=== PATIENT | female | born 1965 | race Caucasian/White ===

== ENCOUNTER 2022-09-10 10:15 | Outpatient (REF) | payer OTHER, SELFPAY ==
--- NOTE | ~2022-09-10 | FL_ITS ---
PROCEDURE: XR BARIUM SWALLOW CLINICAL INFORMATION: Dysphagia. COMPARISON: None TECHNIQUE: Modified barium swallow with speech pathologist. FINDINGS: Patient swallowed multiple consistencies from thin liquid to barium-coated cookie. There was only flash penetration on one swallow of thin liquid and not anytime else during the procedure. No definite cricopharyngeal hypertrophy or Zenker's diverticulum was appreciated. FLUOROSCOPY TIME: 2.4 minutes DOSE AREA PRODUCT: 2.709 Gy-cm2 (lo-centimeter squared) FL/FL barium swallow modified IMPRESSION: No significant abnormality identified as described. Please refer to speech pathologist report for details.
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
== END 2022-09-10 10:16 | disposition home or self-care (01) ==
LOC: HO.XRAY 10:15
PROVIDERS: Visit Provider Internal Medicine Gastroenterology
DX: R13.19 Other dysphagia (principal)
CPT/HCPCS: 74230; 92611

== ENCOUNTER 2024-05-01 11:41 | Day surgery (SDC) | payer OTHER, MEDICARE, SELFPAY ==
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
[2024-05-01 13:01] VITALS: BMI 21.6
[2024-05-01 13:02] VITALS: BP 158/67; PULSE 63; RESP 16; TEMP 37; O2SAT 97
--- NOTE | 2024-05-01 13:35 | MHC.SHP ---
Pre-Procedural Eval Section A - 24 Hr Update-Section A only Date of Service: 05/01/24 The patient is an INPATIENT: No Changes since office visit: No Cold of Flu in the past 2 weeks, No New Medical Problems, No Changes in Medication and No Patient answered all questions The patient has been examined within 24 hours of the surgical procedure. The History & Physical has been completed within 30 days and I have reviewed it.: Yes Section B - Complete if H&P > 30 days Chief Complaint: Dysphagia, unspecified Allergies: Allergies Allergy/AdvReac Type Severity Reaction Status Date / Time No Known Allergies Allergy Verified 05/01/24 13:00 Plan I have reviewed the history and physical and performed a pertinent physical examination on my patient. No changes have occurred unless specified. Time Spent With Patient Time: Total time managing care of this patient today ____ minutes.
[2024-05-01 14:15] VITALS: BP 136/73; PULSE 67; RESP 18; TEMP 36.2; O2SAT 99
[2024-05-01 14:30] VITALS: BP 151/85; PULSE 72; RESP 18; O2SAT 98
[2024-05-01 14:45] VITALS: BP 148/78; PULSE 58; RESP 18; TEMP 36.2; O2SAT 99
[2024-05-01] MEDS: ondansetron HCL 4 MG/2 ML VIAL IVPUSH (14:45)
--- NOTE | 2024-05-01 14:49 | OP_ITS ---
DATE OF SERVICE: 05/01/2024 SURGEON: Marco Antonio Greer MD INDICATIONS: Dysphagia and abdominal pain. PREOPERATIVE DIAGNOSIS: POSTOPERATIVE DIAGNOSIS: PROCEDURE PERFORMED: Upper endoscopy with biopsy. ESTIMATED BLOOD LOSS: COMPLICATIONS: ANESTHESIA: Monitored anesthesia care. ASSISTANTS: SPECIMENS: DESCRIPTION OF PROCEDURE: A history and physical was performed. The risks and benefits of the procedure were explained to the patient and informed consent was obtained. The patient was placed in the left lateral decubitus position. The Olympus video gastroscope was introduced into the esophagus, stomach, and duodenum. Examination was performed and the scope was removed. She tolerated the procedure well and was returned to recovery area in stable condition. FINDINGS: Esophagus: The esophagus showed a whitish coating in the distal esophagus that did not appear consistent with Belinda. This appeared to wash off with irrigation. Biopsies were obtained from the EG junction and from the body of the esophagus. No stricture was seen. Stomach: The stomach showed no evidence of masses or ulcers. There was a small polyp right at the pylorus, which appeared inflammatory. Biopsies were obtained from the antrum and from the polyp. Duodenum: The bulb and 2nd portion were normal. Biopsies were obtained from the 2nd portion. IMPRESSION: 1. Dysphagia. 2. Abdominal pain. RECOMMENDATION: Follow up the biopsy results. MD JESSICA Dang/ADILENE / [id number]
== END 2024-05-01 15:29 | disposition home or self-care (01) ==
PROVIDERS: PCP Internal Medicine; Visit Provider Internal Medicine Gastroenterology
PROC: 0DJ08ZZ Inspection of Upper Intestinal Tract, Via Natural or Artificial Opening Endoscopic (ICD-10-PCS; CPT 43235; principal; 2024-05-01 14:00)
DX: R13.10 Dysphagia, unspecified (principal); K29.50 Unspecified chronic gastritis without bleeding; K31.7 Polyp of stomach and duodenum
CPT/HCPCS: 43239; 88305; 88313; 88342; J2405

== ENCOUNTER 2024-08-21 06:26 | Day surgery (SDC) | payer OTHER, MEDICARE, SELFPAY ==
[2024-08-16 13:56] VITALS: BMI 16.1
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
[2024-08-21 06:52] VITALS: BMI 22.1
[2024-08-21 07:17] VITALS: BP 134/69; PULSE 67; RESP 16; TEMP 36.8; O2SAT 97
[2024-08-21] MEDS: Lactated Ringers 1,000 ML 100 ML IVCONT (07:25)
--- NOTE | 2024-08-21 07:39 | P.HPSUR_ITS ---
Pre-Procedural Eval Section A - 24 Hr Update-Section A only Date of Service: 08/21/24 Section B - Complete if H&P > 30 days Chief Complaint: Gastric intestinal metaplasia, unspecified Details of Present Illness: Gastric intestinal metaplasia, EGD for evaluation Relevant Family History (Specify if Yes): No Relevant Social History: None Allergies: Allergies Allergy/AdvReac Type Severity Reaction Status Date / Time No Known Allergies Allergy Verified 05/01/24 13:00 Review of Systems Sugical H&P ROS: Negative: Constitution, Cardiovascular, Respiratory, Neurological, Psychiatric, Hem-Onc, Allergic/Immunologic, Gastrointestinal, Genitourinary, Musculoskeletal, Integumentary, Endocrine and Eyes/Ears/Nose/ Throat Exam Surgical H&P Exam: Normal: HEENT, Normal: Heart, Normal: Lungs, Normal: Extremities, Normal: Abdomen, Normal: Skin and Normal: Neurological Plan Diagnosis/Plan: Unchanged I have reviewed the history and physical and performed a pertinent physical examination on my patient. No changes have occurred unless specified. Time Spent With Patient Time: Total time managing care of this patient today ____ minutes.
[2024-08-21 08:07] VITALS: BP 109/55; PULSE 71; RESP 12; TEMP 36.4; O2SAT 97
[2024-08-21 08:22] VITALS: BP 135/73; PULSE 73; RESP 16; TEMP 36.4; O2SAT 97
--- NOTE | 2024-08-21 08:24 | OP_ITS ---
DATE OF SERVICE: 08/21/2024 SURGEON: Marco Antonio Greer MD INDICATIONS: Gastric intestinal metaplasia. PREOPERATIVE DIAGNOSIS: POSTOPERATIVE DIAGNOSIS: PROCEDURE PERFORMED: Upper endoscopy with biopsy. ESTIMATED BLOOD LOSS: COMPLICATIONS: ANESTHESIA: Monitored anesthesia care. ASSISTANTS: SPECIMENS: DESCRIPTION OF PROCEDURE: A history and physical was performed. The risks and benefits of the procedure were explained to the patient and informed consent was obtained. The patient was placed in the left lateral decubitus position. The Olympus video gastroscope was introduced into the esophagus, stomach, and duodenum. Examination was performed. The scope was removed. She tolerated the procedure well and was turned to recovery area in stable condition. FINDINGS: Esophagus: The esophagus was normal. Stomach: The stomach showed no evidence of masses, ulcers, or polyps. Biopsies were obtained because of the patient's history of gastric intestinal metaplasia. Duodenum: The bulb and 2nd portion were normal. IMPRESSION: Gastric intestinal metaplasia. RECOMMENDATION: Follow up the biopsy results. MD JESSICA Dang/MODL / [id number]
== END 2024-08-21 08:48 | disposition home or self-care (01) ==
PROVIDERS: PCP Internal Medicine; Visit Provider Internal Medicine Gastroenterology
PROC: 0DJ08ZZ Inspection of Upper Intestinal Tract, Via Natural or Artificial Opening Endoscopic (ICD-10-PCS; CPT 43235; principal; 2024-08-21 07:30)
DX: K31.A0 Gastric intestinal metaplasia, unspecified (principal); K29.60 Other gastritis without bleeding; K21.9 Gastro-esophageal reflux disease without esophagitis; K92.89 Other specified diseases of the digestive system; G47.00 Insomnia, unspecified; Z87.820 Personal history of traumatic brain injury; G43.909 Migraine, unspecified, not intractable, without status migrainosus; M81.0 Age-related osteoporosis without current pathological fracture; E03.9 Hypothyroidism, unspecified; Z79.899 Other long term (current) drug therapy
CPT/HCPCS: 43239; 88305; 88313; 88342; J2003; J2704

== ENCOUNTER 2025-09-03 07:53 | Outpatient (REF) | payer OTHER, MEDICARE, SELFPAY ==
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
--- OUTSIDE RECORDS SUMMARY | 2024-08-21 03:30 | XMS_ITS ---
Author Organization [facility] Address [address] [place] [address] [place] [phone] Care Team Providers Care Production Material Handler Name Role Phone Shu WEINBERG, Kendall Primary Care Provider Marco Antonio Jensen Jr REASON FOR VISIT upper endoscopy Encounters Encounter Location Date Provider Diagnosis [facility] [place] [address] [place] [id number] 08/21/2024 Marco Antonio Greer Jr Gastric intestinal metaplasia K31.A0 Assessments Encounter Date Diagnosis (ICD Code) Assessment Notes Treatment Notes Treatment Clinical Notes Section Notes 08/21/2024 Gastric intestinal metaplasia (ICD-10 - K31.A0) Plan Of Treatment Next Appt Details Provider Name:Marco Antonio koo Jr, 04/23/2026 10:20:00 AM, [address] [place] [address], Suite [facility], [place], [address], Progress Notes * BASSAM WILLSHUDSONDOB:1965 (59 yo F)Acc No.[id number]:08/21/2024 EGD/MAC Patient: OVI RAMIREZ Provider: Westley Greer MD :1965 A ge:58 Y S ex:Female Date:08/21/2024 Address:[address], [id number] Pcp:Kendall Ireland MD Subjective: * Chief Complaints: * 1 . Upper endoscopy. * Medical History: Objective: * Vitals: Assessment: * Assessment: 1. G astric intestinal metaplasia - K31.A0 (Primary) Plan: * Treatment: * Procedure Codes: 4 3239 UPPER GI ENDOSCOPY, BIOPSY * * The named appointment provid er may or may not be the originator of this progress note, and it is not deemed complete until electronically signed by the appointment provider. Sign off status: Pending * Provider: Westley Greer MD Date: Generated for Daisha mendoza/Keny/Efrenitting on: 08:03 AM EDT
--- OUTSIDE RECORDS SUMMARY | 2025-07-26 05:00 | XMS_ITS ---
Author Organization [facility] Address [address] [place] [address] [place] [phone] Care Team Providers Care Furnace Keeper Name Role Phone Kendall Ireland MD Primary Care Provider Marco Antonio Jensen Jr REASON FOR VISIT screening Encounters Encounter Location Date Provider Diagnosis [facility] [place] [address] [place] [id number] 07/26/2025 Marco Antonio Greer Jr Plan Of Treatment Next Appt Details Provider Name:Marco Antonio koo Jr, 04/23/2026 10:20:00 AM, [address] [place] [address], Suite [facility], [place], [phone], Progress Notes * OVI WILLSDOB:1965 (59 yo F)Acc No.[id number]:07/26/2025 Progress Notes Patient: OVI RAMIREZ Provider: Westley Greer MD :1965 A ge:59 Y S ex:Female Date:07/26/2025 Address:[address], [id number] Pcp:Kendall Ireland MD Subjective: * Chief Complaints: * 1 . Screening. * Medical History: Objective: * Vitals: Assessment: Plan: * Treatment: * * The named appointment provid er may or may not be the originator of this progress note, and it is not deemed complete until electronically signed by the appointment provider. Sign off status: Pending * Provider: Westley Greer MD Date: 0 07/26/2025 Generated for Daisha mendoza/Keny/Shawna on: 1 08:03 AM EDT
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
--- OUTSIDE RECORDS SUMMARY | 2025-09-03 08:04 | XMS_ITS | Clinical Summary ---
Author Organization [facility] Address [address] [place] [address] Care Team Providers Care Medical Records Custodian Name Role Phone Dory Aldana Primary Care Provider [phone] Allergies No known active allergies Active Problems Problem Noted Date Diagnosed Date Eye pain Left 04/24/2013 Social History Tobacco Use Types Packs/Day Years Used Date Smoking Tobacco: Never Smokeless Tobacco: Never Tobacco Cessation:Counseling Given: Not Answered Comments:: Alcohol Use Standard Drinks/Week Comments Not Currently 0 (1 standard drink = 0.6 oz pur e alcohol) Comments Unknown Sex and Gender Information Value Date Recorded Sex Assigned at Female 07/27/2024 4:00 PM EDT Legal Sex Female 7:52 AM EDT Gender Identity Female 07/27/2024 4:00 PM EDT Sexual Orientation Not on file Last Filed Vital Signs Vital Sign Reading Time Taken Comments Blood Pressure 116/64 07/31/2024 8:38 AM EDT Pulse - - Temperature 36.4 C (97.5 F) 07/31/2024 8:38 AM EDT Respiratory Rate - - Oxygen Saturation - - Inhaled Oxygen Concentration - - Weight 47.9 kg (105 lb 9.6 oz) 07/31/2024 8:38 A M EDT Height 144.8 cm (4' 9 ) 07/31/2024 8:38 AM EDT Body Mass Index 22.85 07/31/2024 8:38 AM EDT Plan of Treatment Health Maintenance Due Date Last Done Comments Cologuard 1963 Colon Cancer Screening 1963 Colonoscopy 1963 FOBT / Fit Test 1963 HIV Screening 1963 Hepatitis C Screening 1963 Sigmoidoscopy 1963 DTaP,Tdap,and Td Vaccines (1 - Tdap) 1985 Mammogram 2003 Pneumococcal Vaccine: 50+ Ye ars (1 of 1 - PCV) 2013 Zoster Vaccines (1 of 2) 2013 Alcohol/Substance Use Screening 11/07/2024 Depression Screening and Follow-Up 11/07/2024 Social Drivers of Health [place] ual Screening 11/07/2024 COVID-19 Vaccine (1 - 2024-2 6 season) 2025 Influenza Vaccine (#1) 2025 RSV Vaccine (60+ years old a nd patients) (1 - 1-dose 75+ series) 2038 Hepatitis B Vaccines Aged Out No long er eligible based on patient's age to complete this topic Insurance Care Teams Medical Records Custodian Relationship Specialty Start Date End Date Dory Aldana [address] [place] [phone] PCP - General 05/26/17
[2025-09-03 09:13] LABS: Leukocytes Stool Qualitative NEGATIVE (NEGATIVE)
[2025-09-03 10:34] LABS: CDiff Gene PCR POSITIVE (Negative)
[2025-09-03 11:18] LABS: CDIFF Internal ctrl Dots and bkg OK (V); CDiff Toxin Negative (Negative)
[2025-09-03 14:03] LABS: E. coli EAEC Not Detected (Not Detect.); E. coli EPEC Not Detected (Not Detect.); E. coli ETEC Not Detected (Not Detect.); E. coli STEC Not Detected (Not Detect.); Shigella sp./EIEC Not Detected (Not Detect.)
== END 2025-09-03 07:54 | disposition home or self-care (01) ==
LOC: HO.LNP 07:53
PROVIDERS: Visit Provider Internal Medicine Gastroenterology
DX: R19.7 Diarrhea, unspecified (principal)
CPT/HCPCS: 87177; 87209; 87324; 87493; 87507; 89055

== ENCOUNTER 2025-09-26 08:05 | Outpatient (REF) | payer OTHER, MEDICARE, SELFPAY ==
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
--- OUTSIDE RECORDS SUMMARY | 2024-08-21 02:30 | XMS_ITS ---
Author Organization [facility] Address [address] [place] [address] [place] [id number] Care Team Providers Care Chemical Operator Name Role Phone Shu WEINBERG, Kendall Primary Care Provider Marco Antonio Jensen Jr REASON FOR VISIT upper endoscopy Encounters Encounter Location Date Provider Diagnosis [facility] [place] [address] [place] [id number] 08/21/2024 Marco Antonio Greer Jr Gastric intestinal metaplasia K31.A0 Assessments Encounter Date Diagnosis (ICD Code) Assessment Notes Treatment Notes Treatment Clinical Notes Section Notes 08/21/2024 Gastric intestinal metaplasia (ICD-10 - K31.A0) Plan Of Treatment Next Appt Details Provider Name:Marco Antonio koo Jr, 04/23/2026 10:20:00 AM, [address] [place] [address], Suite [facility], [place], [address], Progress Notes * OVI WILLSDOB:1965 (59 yo F)Acc No.[id number]:08/21/2024 EGD/MAC Patient: OVI RAMIREZ Provider: Westley Greer MD :1965 A ge:58 Y S ex:Female Date:08/21/2024 Address:[address], [id number] Pcp:Kendall Ireland MD Subjective: * Chief Complaints: * U pper endoscopy Assessment: * Assessment: 1. G astric intestinal metaplasia - K31.A0 (Primary) Plan: * Procedure Codes: 4 3239 UPPER GI ENDOSCOPY, BIOPSY Billing Information: * Procedure Codes: 83337 UPPER GI ENDOSCOPY, BIOPSY. * The named appointment provid er may or may not be the originator of this progress note, and it is not deemed complete until electronically signed by the appointment provider. Sign off status: Pending * Provider: Westley Greer MD Date: Generated for Daisha mendoza/Keny/Franksmitting on: 11/27/2024 08:06 AM EST
--- OUTSIDE RECORDS SUMMARY | 2025-09-21 23:59 | XMS_ITS | Continuity of Care Document ---
Author Organization [facility] Address [facility] [address]- Support Name Relationship Address Phone ELMA KOFI Personal Relationship Unknown Desirae vailable LAPERLE, KOFI Personal Relationship Unknown Desirae vailable LAPERLE, KOFI Personal Relationship Unknown Desirae vailable DAWOOD SUTTON sibling Unknown Unavailable MARCELINO TUCKER Other Unknown Unavailabl e LAPERLUANA, KOFI Personal Relationship Unknown Desirae vailable LAPERLE, KOFI Personal Relationship Unknown Desirae vailable LAPERLE, KOFI Personal Relationship Unknown Dseirae vailable LAPERLE, KOFI Personal Relationship Unknown Desirae vailable LAPERLE, KOFI Personal Relationship Unknown Desirae vailable LAPERLE, KOFI Personal Relationship Unknown Desirae vailable LAPERLE, KOFI Personal Relationship Unknown Desirae vailable LAPERLE, KOFI Personal Relationship Unknown Desirae vailable LAPERLE, KOFI Personal Relationship Unknown Desirae vailable LAPERLE, KOFI Personal Relationship Unknown Desirae vailable LAPERLE, KOFI Personal Relationship Unknown Desirae vailable LAPERLE, KOFI Personal Relationship Unknown Desirae vailable LAPERLE, KOFI spouse Unknown Unavailable LAPERLEKOFI Personal Relationship Unknown Desirae vailable LAPERLE, KOFI Personal Relationship Unknown Desirae vailable LAPERLE, KOFI Personal Relationship Unknown Desirae vailable LAPERLE, KOFI Personal Relationship Unknown Desirae vailable LAPERLE, KOFI Personal Relationship Unknown Desirae vailable COLLINS, GRETA child Unknown Unavailable LAPERKOFI CRAFT Personal Relationship Unknown Desirae vailable LAPERLE, KOFI Personal Relationship Unknown Desirae vailable LAPERLE, KOFI Personal Relationship Unknown Desirae vailable LAPERKOFI CRAFT J Personal Relationship Unknown U navailable LAPERLUANA, KOFI Personal Relationship Unknown Desirae vailable OVI WILLS Personal Relationship Unknown Un available LAPERLEKOFI Personal Relationship Unknown Desirae vailable KOFI WILLS Personal Relationship Unknown Desirae vailable KOFI WILLS Personal Relationship Unknown Desirae vailable KOFI WILLS Personal Relationship Unknown Desirae vailable Care Team Providers Care Supervisor [employer] Name Role Phone Kendall Ireland MD [facility] Care [id number] Date(s): 05/24/25 - 09/21/25 [facility] [address] [facility] [address] Attending Physician: Benjie Stuart MD Admitting Physician: Benjie Stuart MD Referring Physician: Kendall Ireland MD Encounter Type: Pre-OutPatient One Time Allergies, Adverse Reactions, Alerts No Known Allergies Immunizations Given and Recorded Vaccine Date Status Refusal Reason influenza virus vaccine, inactivated 08/06/25 Give n influenza virus vaccine, inactivated 08/03/23 Duncan rded influenza virus vaccine, inactivated 08/26/22 Duncan rded influenza virus vaccine, inactivated 09/24/21 Duncan rded influenza virus vaccine, inactivated 08/04/20 Duncan rded influenza virus vaccine, inactivated 08/03/19 Duncan rded influenza virus vaccine, inactivated 08/09/18 Duncan rded influenza virus vaccine, inactivated 08/11/17 Duncan rded influenza virus vaccine, inactivated 08/12/16 Duncan rded tetanus/diphtheria/pertussis, acel(Tdap) 1 03/04/25 Given RSV vaccine preF3, recombinant 08/23/24 Recorded SARS-CoV-2(COVID-19)mRNA-LNP vac([id number]) 08/23/24 Recorded [id number] 12y+ bivalent booster vax 09/01/22 Recorded SARS-CoV-2 (COVID-19) mRNA BNT-162b2 vac 10/19/21 Recorded SARS-CoV-2 (COVID-19) mRNA BNT-162b2 vac 01/10/21 Recorded SARS-CoV-2 (COVID-19) mRNA BNT-162b2 vac 12/20/20 Recorded zoster vaccine, inactivated 07/02/20 Recorded zoster vaccine, inactivated 05/03/20 Recorded pneumococcal 23-valent vaccine 10/13/17 Recorded 1Result Comment: [facility]: [id number] Medications acetaminophen 650 mg oral tablet, extended release 2 tablet, By Mouth, Every 8 hours, # 540 tablet, 0 Refills, Maintenance, 08/19/25 8:35:00 AM EDT, [facility] #[id number], 147, cm, 08/06/25 16:02:00 EDT, Height, 50.1, kg, 07/03/25 14:18:00 EDT,Dry Weight Start Date: 08/19/25 Status: Ordered Medication Dispense Status: Completed Quantity: 540.0 Unit: tablet Total Allowed Fills: 1 Fills Dispensed: 0 Aerochamber w/Mask (Large) See Instructions, # 1 each, Maintenance, one spray to the chamber followed by 5 regular breaths. Repeat as directed, 06/18/25 1:05:00 PM EDT, Supply, 147, cm, 05/21/25 8:19:00 EDT, Height, 45, kg, 09/08/24 13:16:00 EDT, Dry Weight Start Date: 06/18/25 Status: Ordered Medication Dispense Status: Completed Quantity: 1.0 Unit: each Total Allowed Fills: 1 Fills Dispensed: 0 Aimovig SureClick Autoinjector-aooe 140 mg/mL subcutaneous solution See Instructions, ADMINISTER 1 ML UNDER THE SKIN EVERY 28 DAYS, # 1 mL, 5 Refills, Maintenance, 09/02/25 8:50:00 PM EDT, [facility] #[id number], 147, cm, 08/27/25 9:31:00 EDT, Height, 50.1, kg, 07/03/25 14:18:00 EDT, Dry Weight Start Date: 09/02/25 Status: Ordered Medication Dispense Status: Completed Quantity: 1.0 Unit: mL Total Allowed Fills: 6 Fills Dispensed: 0 Albuterol (Eqv-Proventil HFA) 90 mcg/inh inhalation aerosol 2 inhalation = 180 mcg, Inhalation, Every 4 hours, PRN as needed for shortness of breath or wheezing, [id number], # 3 each, 3 Refills, Maintenance, 05/13/25 1:09:00 PM EDT, Aerosol, [facility] #[id number], Partial fill upon patient request if the prescription is for a schedule II opioid drug., 147, cm, 04/23/25 15:36:00 EDT, Height, 45, kg, 09/08/24 13:16:00 EDT, Dry Weight Start Date: 05/13/25 Status: Ordered Medication Dispense Status: Completed Quantity: 3.0 Unit: each Total Allowed Fills: 4 Fills Dispensed: 0 Albuterol (Eqv-Proventil HFA) 90 mcg/inh inhalation aerosol 2 inhalation = 180 mcg, Inhalation, Every 4 hours, PRN as needed for shortness of breath or wheezing, # 18 Gm, 11 Refills, Maintenance, 05/20/25 10:43:00 AM EDT, Aerosol, [facility] #[id number], Partial fill upon patient request if the prescription is for a schedule II opioid drug., 147, cm, 04/23/25 15:36:00 EDT, Height, 45, kg, 09/08/24 13:16:00 EDT, Dry Weight Start Date: 05/20/25 Stop Date: 05/15/26 Status: Ordered Medication Dispense Status: Completed Quantity: 18.0 Unit: g Total Allowed Fills: 12 Fills Dispensed: 0 albuterol 0.083% inhalation solution 3 mL = 2.5 mg, Inhalation, Every 6 hours, PRN for wheezing/shortness of breath, # 360 mL, 11 Refills, Maintenance, 06/26/25 12:16:00 PM EDT, Solution, [facility] #[id number], Partial fill upon patient request if the prescription is for a schedule II opioid drug., 147, cm, 06/26/25 11:48:00 EDT,Height, 45, kg, 09/08/24 13:16:00 EDT, Dry Weight Start Date: 06/26/25 Status: Ordered Medication Dispense Status: Completed Quantity: 360.0 Unit: mL Total Allowed Fills: 12 Fills Dispensed: 0 amLODIPine 5 mg oral tablet 1 tablet, By Mouth, Daily, # 90 tablet, 1 Refills, Maintenance, 05/13/25 11:44:00 AM EDT, [facility] #[id number], 147, cm, 04/23/25 15:36:00 EDT, Height, 45, kg, 09/08/24 13:16:00 EDT, Dry Weight Start Date: 05/13/25 Status: Ordered Medication Dispense Status: Completed Quantity: 90.0 Unit: tablet Total Allowed Fills: 2 Fills Dispensed: 0 azelastine 137 mcg/inh (0.1%) nasal spray 1 sprays = 137 mcg, Nares, Both, 2 times a day, # 30 mL, 3 Refills, Maintenance, 12/14/24 2:40:00 PM EST, [place], [facility] #[id number], Partial fill upon patient request if the prescription is for a schedule II opioid drug., 1 sprays Nares, Both 2 times a day,x30 days, 147, cm, 12/04/24 11:38:00 EST, Height, 45, kg, 09/08/24 13:16:00 EDT, Dry Weight Start Date: 12/14/24 Stop Date: 04/13/25 Status: Ordered Medication Dispense Status: Completed Quantity: 30.0 Unit: mL Total Allowed Fills: 4 Fills Dispensed: 0 Breo Ellipta 100 mcg-25 mcg/inh inhalation powder 1 inhalation, Inhalation, Daily, for 30 days, at the same time every day, # 1 each, 11 Refills, Hard Stop 04/26/26 9:40:00 AM EDT, 05/01/25 9:40:00 AM EDT, Powder, [facility] #[id number], Partial fill upon patient request if the prescription is for a schedule II opioid drug., 147, cm, 04/23/25 15:36:00 EDT, Height, 45, kg, 09/08/24 13:16:00 EDT, Dry Weight Start Date: 05/01/25 Stop Date: 04/26/26 Status: Ordered Medication Dispense Status: Completed Quantity: 1.0 Unit: each Total Allowed Fills: 12 Fills Dispensed: 0 Breo Ellipta 100 mcg-25 mcg/inh inhalation powder 1 inhalation, Inhalation, Daily, at the same time every day. No Substituition, CHUCKIE., # 3 each, 3 Refills, Maintenance, 04/26/26 9:40:00 AM EDT, Powder, [facility] #[id number], Partial fill upon patient request if the prescription is for a schedule II opioid drug., 1 inhalation Inhalation Daily,x 90 days,Instr:at the same time every day. No Substituition, CHUCKIE., 147, cm, 04/23/25 15:36:00 EDT, Height, 45, kg, 09/08/24 13:16:00 EDT, Dry Weight Start Date: 04/26/26 Stop Date: 04/21/27 Status: Ordered Medication Dispense Status: Completed Quantity: 3.0 Unit: each Total Allowed Fills: 4 Fills Dispensed: 0 Breyna 160 mcg-4.5 mcg/inh inhalation aerosol 2 inhalation, Inhalation, 2 times a day, in the morning and the evening, # 10.3 Gm, 5 Refills, Maintenance, 08/27/25 9:53:00 AM EDT, Aerosol, [facility] #[id number], Partial fill upon patient request if the prescription is for a schedule II opioid drug., 2 inhalation Inhalation 2 times a day,Instr:in the morning and the evening, 147, cm, 08/27/25 9:31:00 EDT, Height, 50.1, kg, 07/03/25 14:18:00 EDT, Dry Weight Start Date: 08/27/25 Status: Ordered Medication Dispense Status: Completed Quantity: 10.3 Unit: g Total Allowed Fills: 6 Fills Dispensed: 0 Diphenoxylate 2.5 mg / Atropine 0.025 mg Tablet By Mouth, 4 times a day, Refills 0, Maintenance, 12/31/24 8:03:00 AM EST, Partial fill upon patient request if the prescription is for a schedule II opioid drug. Start Date: 12/31/24 Status: Ordered Medication Dispense Status: Completed Total Allowed Fills: 1 Fills Dispensed: 0 docusate-senna 50 mg-8.6 mg oral capsule 2 capsule, By Mouth, Daily in PM, # 60 capsule, 5 Refills, Acute 05/20/26 6:58:00 PM EDT, 05/20/25 6:57:00 PM EDT, Capsule, [facility] #[id number], Partial fill upon patient request if the prescription is for a schedule II opioid drug., 2 capsule By Mouth Daily in PM, 147, cm, 04/23/25 15:36:00 EDT, Height, 45, kg, 09/08/24 13:16:00 EDT, Dry Weight Start Date: 05/20/25 Stop Date: 05/20/26 Status: Ordered Medication Dispense Status: Completed Quantity: 60.0 Unit: capsule Total Allowed Fills: 6 Fills Dispensed: 0 duloxetine 30 mg oral enteric coated capsule 2 capsule, By Mouth, Daily, DO NOT CRUSH OR CHEW, # 60 capsule, 2 Refills, Maintenance, 06/02/25 2:10:00 PM EDT, [facility] #[id number], 147, cm, 05/21/25 8:19:00 EDT, Height, 45, kg, 09/08/24 13:16:00 EDT, Dry Weight Start Date: 06/02/25 Status: Ordered Medication Dispense Status: Completed Quantity: 60.0 Unit: capsule Total Allowed Fills: 1 Fills Dispensed: 0 eszopiclone 2 mg oral tablet 1 tablet = 2 mg, By Mouth, Daily at bedtime, for 30 days, do not chew or break tablets, # 30 tablet, 5 Refills, Physician Stop 11/17/25 9:05:00 AM EST, 05/21/25 9:05:00 AM EDT, [facility] #[id number], 147, cm, 05/21/25 8:19:00 EDT, Height, 45, kg, 09/08/24 13:16:00 EDT, Dry Weight Start Date: 05/21/25 Stop Date: 11/17/25 Status: Ordered Medication Dispense Status: Completed Quantity: 30.0 Unit: tablet Total Allowed Fills: 6 Fills Dispensed: 0 famotidine 40 mg oral tablet See Instructions, TAKE 1 TABLET BY MOUTH EVERY DAY AT BEDTIME, # 90 tablet, 3 Refills, Maintenance,05/21/25 9:07:00 AM EDT, [facility] #[id number], 147, cm, 05/21/25 8:19:00 EDT, Height, 45, kg,09/08/24 13:16:00 EDT, Dry Weight Start Date: 05/21/25 Status: Ordered Medication Dispense Status: Completed Quantity: 90.0 Unit: tablet Total Allowed Fills: 4 Fills Dispensed: 0 famotidine 40 mg oral tablet See Instructions, TAKE 1 TABLET BY MOUTH EVERY DAY AT BEDTIME, # 90 tablet, 3 Refills, Maintenance,04/30/25 4:14:00 PM EDT, [facility] #[id number], 147, cm, 04/23/25 15:36:00 EDT, Height, 45, kg, 09/08/24 13:16:00 EDT, Dry Weight Start Date: 04/30/25 Status: Ordered Medication Dispense Status: Completed Quantity: 90.0 Unit: tablet Total Allowed Fills: 4 Fills Dispensed: 0 fluticasone 50 mcg/inh nasal spray 1 sprays = 50 mcg, Nares, Both, 2 times a day, # 16 Gm, 5 Refills, Maintenance, 04/26/25 8:12:00 AM EDT, Nasal [place], [facility] #[id number], Partial fill upon patient request if the prescriptionis for a schedule II opioid drug., 1 sprays Nares, Both 2 times a day,x30 days, 147, cm, 04/23/25 15:36:00 EDT, Height, 45, kg, 09/08/24 13:16:00 EDT, Dry Weight Start Date: 04/26/25 Stop Date: 10/23/25 Status: Ordered Medication Dispense Status: Completed Quantity: 16.0 Unit: g Total Allowed Fills: 6 Fills Dispensed: 0 Gemtesa 75 mg oral tablet 0 Refills, Maintenance, 12/31/24 8:03:00 AM EST, Partial fill upon patient request if the prescription is for a schedule II opioid drug. Start Date: 12/31/24 Status: Ordered Medication Dispense Status: Completed Total Allowed Fills: 1 Fills Dispensed: 0 ipratropium nasal 21 mcg/inh spray See Instructions, USE 2 SPRAYS IN EACH NOSTRIL TWICE DAILY, # 30 mL, 5 Refills, Maintenance, 09/16/25 10:10:00 AM EST, [facility] #[id number], 30, USE 2 SPRAYS IN EACH NOSTRIL TWICE DAILY, 147, cm, 09/10/25 11:03:00 EST, Height, 50.1, kg, 07/03/25 14:18:00 EDT, Dry Weight Start Date: 09/16/25 Status: Ordered Medication Dispense Status: Completed Quantity: 30.0 Unit: mL Total Allowed Fills: 6 Fills Dispensed: 0 levothyroxine 0.05 mg oral tablet 1 tablet, By Mouth, Daily in AM, ON AN EMPTY STOMACH., # 30 tablet, 5 Refills, Maintenance, 07/09/25 2:18:00 PM EDT, [facility] #[id number], 147, cm, 07/03/25 14:51:00 EDT, Height, 50.1, kg, 07/03/25 14:18:00 EDT, Dry Weight Start Date: 07/09/25 Status: Ordered Medication Dispense Status: Completed Quantity: 30.0 Unit: tablet Total Allowed Fills: 1 Fills Dispensed: 0 magnesium oxide 400 mg oral tablet 1 tablet = 400 mg, By Mouth, Daily, for 90 days, # 90 tablet, 3 Refills, Acute 05/16/26 8:40:00 AM EDT, 05/21/25 8:40:00 AM EDT, [facility] #[id number], Partial fill upon patient request if the prescription is for a schedule II opioid drug., 147, cm, 05/21/25 8:19:00 EDT, Height, 45, kg, 09/08/24 13:16:00 EDT, Dry Weight Start Date: 05/21/25 Stop Date: 05/16/26 Status: Ordered Medication Dispense Status: Completed Quantity: 90.0 Unit: tablet Total Allowed Fills: 4 Fills Dispensed: 0 methadone 10 mg oral tablet See Instructions, TAKE 1 TABLET BY MOUTH EVERY 8 HOURS FOR PAIN M54.9, # 90 tablet, 0 Refills, Maintenance, 09/09/25 8:49:00 PM EST, [facility] #[id number], 147, cm, 08/27/25 9:31:00 EDT, Height,50.1, kg, 07/03/25 14:18:00 EDT, Dry Weight Start Date: 09/09/25 Status: Ordered Medication Dispense Status: Completed Quantity: 90.0 Unit: tablet Total Allowed Fills: 1 Fills Dispensed: 0 morphine 15 mg oral tablet, immediate release 1 tablet = 15 mg, By Mouth, 2 times a day, PRN for pain, for 30 days, for break through pain, # 60 tablet, 0 Refills, Acute 10/09/25 8:49:00 PM EST, 09/09/25 8:49:00 PM EST, Tablet, [facility] #[id number], Partial fill upon patient request if the prescription is for a schedule II opioid drug., 147, cm, 08/27/25 9:31:00 EDT, Height, 50.1, kg, 07/03/25 14:18:00 EDT, Dry Weight Start Date: 09/09/25 Stop Date: 10/09/25 Status: Ordered Medication Dispense Status: Completed Quantity: 60.0 Unit: tablet Total Allowed Fills: 1 Fills Dispensed: 0 Movantik 1 tab, By Mouth, Daily in AM, 0 Refills, Maintenance, 10/17/20 11:17:00 AM EST, Partial fill upon patient request if the prescription is for a schedule II opioid drug. Start Date: 10/17/20 Status: Ordered Medication Dispense Status: Completed Total Allowed Fills: 1 Fills Dispensed: 0 Naprosyn 500 mg oral tablet 1 tablet, By Mouth, 2 times a day, PRN for pain, # 20 tablet, 0 Refills, Maintenance, 08/03/14 2:45:59 AM EDT, Tablet Start Date: 08/03/14 Status: Ordered Medication Dispense Status: Completed Quantity: 20.0 Unit: tablet Total Allowed Fills: 1 Fills Dispensed: 0 Nebulizer/Compressor See Instructions, # 1 each, Refills 11, Tot. Refills 11, Maintenance, Nebulizer Machine A7003 Neb Disp Set A7014 Neb non-Disp Filter A7005 Neb Non-Disp set A7015 Aerosol Mask A7013 Neb Disp Filter length of need lifetime 99 months for home use Dx, 06/26/25 3:58:00 PM EDT, Supply Start Date: 06/26/25 Status: Ordered Medication Dispense Status: Completed Quantity: 1.0 Unit: each Total Allowed Fills: 12 Fills Dispensed: 0 Nurtec ODT 75 mg oral tablet, disintegrating 1 tablet, By Mouth, Every 24 hours, PRN NEEDED FOR MIGRAINE HEADACHE, # 8 tablet, 5 Refills, Maintenance, 03/04/25 5:46:00 AM EDT, [facility] #[id number], 147, cm, 12/31/24 7:48:00 EST, Height, 45, kg, 09/08/24 13:16:00 EDT, Dry Weight Start Date: 03/04/25 Status: Ordered Medication Dispense Status: Completed Quantity: 8.0 Unit: tablet Total Allowed Fills: 1 Fills Dispensed: 0 oxybutynin 15 mg/24 hr oral tablet, extended release 1 tablet, By Mouth, Daily, # 30 tablet, 5 Refills, Maintenance, 07/03/25 11:38:00 AM EDT, [facility] #[id number], 147, cm, 06/26/25 11:48:00 EDT, Height, 45, kg, 09/08/24 13:16:00 EDT, Dry Weight Start Date: 07/03/25 Status: Ordered Medication Dispense Status: Completed Quantity: 30.0 Unit: tablet Total Allowed Fills: 1 Fills Dispensed: 0 pantoprazole 40 mg oral delayed release tablet 1 tablet, By Mouth, Daily, # 90 tablet, 0 Refills, Maintenance, 09/16/25 10:10:00 AM EST, 147, cm, 09/10/25 11:03:00 EST, Height, 50.1, kg, 07/03/25 14:18:00 EDT, Dry Weight Start Date: 09/16/25 Status: Ordered Medication Dispense Status: Completed Quantity: 90.0 Unit: tablet Total Allowed Fills: 1 Fills Dispensed: 0 ProAir Digihaler 90 mcg/inh inhalation powder 2 inhalation = 180 mcg, Inhalation, Every 4 hours, PRN as needed for shortness of breath or wheezing, # 1 each, 11 Refills, Maintenance, 05/01/25 9:40:00 AM EDT, [facility] #[id number], Partial fill upon patient request if the prescription is for a schedule II opioid drug., 147, cm, 04/23/25 15:36:00 EDT, Height, 45, kg, 09/08/24 13:16:00 EDT, Dry Weight Start Date: 05/01/25 Stop Date: 04/26/26 Status: Ordered Medication Dispense Status: Completed Quantity: 1.0 Unit: each Total Allowed Fills: 12 Fills Dispensed: 0 ProAir RespiClick 90 mcg/inh inhalation powder 1 inhalation = 90 mcg, Inhalation, Every 4 hours, PRN as needed for shortness of breath or wheezing, # 2 each, 11 Refills, Maintenance, 06/27/25 11:35:00 AM EDT, Powder, [facility] #[id number], Partial fill upon patient request if the prescription is for a schedule II opioid drug., 1 inhalationInhalation Every 4 hours,PRN:as needed for shortness of breath or wheezing, 147, cm, 06/26/25 11:48:00 EDT, Height, 45, kg, 09/08/24 13:16:00 EDT, Dry Weight Start Date: 06/27/25 Status: Ordered Medication Dispense Status: Completed Quantity: 2.0 Unit: each Total Allowed Fills: 12 Fills Dispensed: 0 ProAir RespiClick 90 mcg/inh inhalation powder 1 puffs, Inhalation, Every 4 hours, PRN NEEDED, # 1 each, 11 Refills, Maintenance, 03/10/25 7:29:00 PM EDT, [facility] #[id number], 30, INHALE 1 PUFF BY MOUTH EVERY 4 HOURS NEEDED, 147, cm, 03/04/25 9:15:00 EDT, Height, 45, kg, 09/08/24 13:16:00 EDT, Dry Weight Start Date: 03/10/25 Status: Ordered Medication Dispense Status: Completed Quantity: 1.0 Unit: each Total Allowed Fills: 1 Fills Dispensed: 0 prochlorperazine 5 mg oral tablet 1 tablet = 5 mg, By Mouth, 3 times a day, PRN for nausea/vomiting, # 30 tablet, 0 Refills, Maintenance, 09/21/24 11:33:00 AM EST, Tablet, Partial fill upon patient request if the prescription is for a schedule II opioid drug. Start Date: 09/21/24 Status: Ordered Medication Dispense Status: Completed Quantity: 30.0 Unit: tablet Total Allowed Fills: 1 Fills Dispensed: 0 propranolol 10 mg oral tablet Refills 0, Maintenance, 03/04/25 9:14:00 AM EDT, Partial fill upon patient request if the prescription is for a schedule II opioid drug. Start Date: 03/04/25 Status: Ordered Medication Dispense Status: Completed Total Allowed Fills: 1 Fills Dispensed: 0 riboflavin 400 mg oral capsule 1 capsule = 400 mg, By Mouth, Daily, # 90 capsule, 3 Refills, Maintenance, 05/21/25 8:40:00 AM EDT, [facility] #[id number], Partial fill upon patient request if the prescription is for a scheduleII opioid drug., 147, cm, 05/21/25 8:19:00 EDT, Height, 45, kg, 09/08/24 13:16:00 EDT, Dry Weight Start Date: 05/21/25 Status: Ordered Medication Dispense Status: Completed Quantity: 90.0 Unit: capsule Total Allowed Fills: 4 Fills Dispensed: 0 risedronate 150 mg oral tablet 1 tablet = 150 mg, By Mouth, Every 30 days, # 1 tablet, 11 Refills, Maintenance, 01/01/25 10:20:00 PM EST, Tablet, [facility] #[id number], Partial fill upon patient request if the prescription isfor a schedule II opioid drug., 147, cm, 12/31/24 7:48:00 EST, Height, 45, kg, 09/08/24 13:16:00 EDT, Dry Weight Start Date: 01/01/25 Status: Ordered Medication Dispense Status: Completed Quantity: 1.0 Unit: tablet Total Allowed Fills: 12 Fills Dispensed: 0 risedronate 150 mg oral tablet 1 tablet = 150 mg, By Mouth, Every 30 days, # 1 tablet, 0 Refills, Maintenance, 09/21/24 11:36:00 AM EST, Tablet, Partial fill upon patient request if the prescription is for a schedule II opioid drug. Start Date: 09/21/24 Status: Ordered Medication Dispense Status: Completed Quantity: 1.0 Unit: tablet Total Allowed Fills: 1 Fills Dispensed: 0 rizatriptan 10 mg oral tablet 1 tablet = 10 mg, By Mouth, Daily, PRN for migraine headache, may repeat dose every 2 hours up to amaximum of 3, # 12 tablet, 5 Refills, Acute 09/02/26 8:51:00 PM EDT, 09/02/25 8:50:00 PM EDT, Tablet, [facility] #[id number], Partial fill upon patient request if the prescription is for a schedule II opioid drug., 147, cm, 08/27/25 9:31:00 EDT, Height, 50.1, kg, 07/03/25 14:18:00 EDT, Dry Weight Start Date: 09/02/25 Stop Date: 09/02/26 Status: Ordered Medication Dispense Status: Completed Quantity: 12.0 Unit: tablet Total Allowed Fills: 6 Fills Dispensed: 0 traZODone 100 mg oral tablet 200 mg, 2, tablet, By Mouth, Daily at bedtime, # 60 tablet, Refills 11, Tot. Refills 11, Maintenance, 04/04/25 9:28:00 PM EDT, Route to Pharmacy Electronically, [facility] #[id number], Partial fill upon patient request if the prescription is for a schedule II opioid drug., 147, cm, 03/04/25 9:15:00 EDT, Height, 45, kg, 09/08/24 13:16:00 EDT, Dry Weight Start Date: 04/04/25 Stop Date: 03/30/26 Status: Ordered Medication Dispense Status: Completed Quantity: 60.0 Unit: tablet Total Allowed Fills: 12 Fills Dispensed: 0 Problem List Condition Confirmation Course Effective Dates Status H ealth Status Informant Atrophic vaginitis Confirmed Active Chronic back pain Confirmed Active Chronic insomnia Confirmed Active Functional neurological symptom disorder with mixed symptoms Confirmed Active Hypothyroidism Confirmed Active Osteoporosis Confirmed Active Pain in right shoulder Confirmed Active Tear film insufficiency Confirmed Active Social History Social History Type Response Smoking Status Never smoker; Tobacc o user in household: No entered on: 06/16/15 Sex Sex Representation Female (finding) Patient Care team information Care Team Personnel Name: Kendall Ireland MD Position: [facility] Physician - Primary Care Member Role: PCP Address: [address] [place] [id number] Telecom: Name: Juan F Villareal DO Position: [facility] TWISTING OPERATOR MD Member Role: Lifetime TWISTING OPERATOR Physician Address: [address] [place] [id number] Telecom: Name: Divina Givens RN Position: [facility] RN Member Role: Primary Care Nurse Care Team Related Persons Name: MARCELINO TUCKER Name: GRETA COLLINS Name: KOFI WILLS Name: DAWOOD SUTTON Insurance Providers Guarantor name: [facility] Plan Information #: 1 Payer: MEDICARE B Payer Identifier: NA Member Number: [id number] Group Number: [id number] Subscriber Identifier: [id number] Relationship to Subscriber: self Coverage Type: NA Coverage Verification Date: NA Telecom: NA Address: [facility] Information #: 2 Payer: [facility] [employer] PLAN Payer Identifier: RACHEL Member Number: [id number] Group Number: [id number] Subscriber Identifier: [id number] Relationship to Subscriber: self Coverage Type: Commercial Indemnity Coverage Verification Date: Telecom: NA Address:
--- OUTSIDE RECORDS SUMMARY | 2025-09-22 23:59 | XMS_ITS | Continuity of Care Document ---
Author Organization [facility] Address [address] [place] [phone]- Support Name Relationship Address Phone GARYLUANA KOFI Personal Relationship Unknown Desirae vailable LAPERLE, KOFI Personal Relationship Unknown Desirae vailable LAPERLE, KOFI Personal Relationship Unknown Desirae vailable HERMAN, DAWOOD sibling Unknown Unavailable MARCELINO TUCKER Other Unknown Unavailabl e LAPERLE, KOFI Personal Relationship Unknown Desirae vailable [...] KOFI Personal Relationship Unknown Desirae vailable LAPERLE, OKFI Personal Relationship Unknown Desirae vailable LAPERLE, KOFI spouse Unknown Unavailable LAPERLE, KOFI Personal Relationship Unknown Desirae vailable LAPERLE, KOFI Personal Relationship Unknown Desirae vailable LAPERLE, KOFI Personal Relationship Unknown Desirae vailable LAPERLE, KOFI Personal Relationship Unknown Desirae vailable LAPERLE, KOFI Personal Relationship Unknown Desirae vailable COLLINS, GRETA child Unknown Unavailable LAPERJOSE CRAFTEL Personal Relationship Unknown Desirae vailable LAPERLE, KOFI Personal Relationship Unknown Desirae vailable LAPERLE, KOFI Personal Relationship Unknown Desirae vailable LAPERKOFI CRAFT J Personal Relationship Unknown U navailable LAPERLUANA, KOFI Personal Relationship Unknown Desirae vailaOVI Perkins Personal Relationship Unknown Un available LAPERLE, KOFI Personal Relationship Unknown Desirae vailable LAPERLE, KOFI Personal Relationship Unknown Desirae vailable KOFI WILLS Personal Relationship Unknown Desirae vailable KOFI WILLS Personal Relationship Unknown Desirae vailable Care Team Providers Care It Admin Name Role Phone Kendall Ireland MD Primary Care Physician Encounter [facility] Date(s): 08/23/25 - 09/22/25 [facility] [address] [place] [phone] Encounter Type: Triage Allergies, Adverse Reactions, Alerts No Known Allergies [...] RSV vaccine preF3, recombinant 08/23/24 Recorded SARS-CoV-2(COVID-19)mRNA-LNP vac([id number]) 08/23/24 Recorded [id number] 12y+ bivalent booster vax 09/01/22 Recorded SARS-CoV-2 (COVID-19) mRNA BNT-162b2 vac 10/19/21 Recorded SARS-CoV-2 (COVID-19) mRNA BNT-162b2 vac 01/10/21 Recorded SARS-CoV-2 (COVID-19) mRNA BNT-162b2 vac 12/20/20 Recorded zoster vaccine, inactivated 07/02/20 Recorded zoster vaccine, inactivated 05/03/20 Recorded pneumococcal 23-valent vaccine 10/13/17 Recorded 1Result Comment: [facility]: [id number] Medications acetaminophen 650 mg oral tablet, extended release 2 tablet, By Mouth, Every 8 hours, # 540 tablet, 0 Refills, Maintenance, 08/19/25 8:35:00 AM EDT, [facility] #[id number], 147, cm, 08/06/25 16:02:00 EDT, Height, 50.1, [...] 5 Refills, Maintenance, 09/02/25 8:50:00 PM EDT, [facility] #[id number], 147, cm, 08/27/25 9:31:00 EDT, Height, 50.1, [...] Refills, Maintenance, 05/13/25 1:09:00 PM EDT, Aerosol, [facility] #[id number], Partial fill upon patient request if the [...] Refills, Maintenance, 05/20/25 10:43:00 AM EDT, Aerosol, [facility] #[id number], Partial fill upon patient request if the [...] Refills, Maintenance, 06/26/25 12:16:00 PM EDT, Solution, [facility] #[id number], Partial fill upon patient request if the [...] 1 Refills, Maintenance, 05/13/25 11:44:00 AM EDT, [facility] #[id number], 147, cm, 04/23/25 15:36:00 EDT, Height, 45, kg, 09/08/24 13:16:00 EDT, Dry Weight Start Date: 05/13/25 Status: Ordered Medication Dispense Status: Completed Quantity: 90.0 Unit: tablet Total Allowed Fills: 2 Fills Dispensed: 0 azelastine 137 mcg/inh (0.1%) nasal spray 1 sprays = 137 mcg, Nares, Both, 2 times a day, # 30 mL, 3 Refills, Maintenance, 12/14/24 2:40:00 PM EST, [place], [facility] #[id number], Partial fill upon patient request if the [...] AM EDT, 05/01/25 9:40:00 AM EDT, Powder, [facility] #[id number], Partial fill upon patient request if the [...] 3 Refills, Maintenance, 04/26/26 9:40:00 AM EDT, [facility][id number], Partial fill upon patient request if the [...] Refills, Maintenance, 08/27/25 9:53:00 AM EDT, Aerosol, [facility] #[id number], Partial fill upon patient request if the [...] PM EDT, 05/20/25 6:57:00 PM EDT, Capsule, [facility] #[id number], Partial fill upon patient request if the [...] 2 Refills, Maintenance, 06/02/25 2:10:00 PM EDT, [facility] #[id number], 147, cm, 05/21/25 8:19:00 EDT, Height, 45, [...] 9:05:00 AM EST, 05/21/25 9:05:00 AM EDT, [facility] #[id number], 147, cm, 05/21/25 8:19:00 EDT, Height, 45, kg, 09/08/24 13:16:00 EDT, Dry Weight Start Date: 05/21/25 Stop Date: 11/17/25 Status: Ordered Medication Dispense Status: Completed Quantity: 30.0 Unit: tablet Total Allowed Fills: 6 Fills Dispensed: 0 famotidine 40 mg oral tablet See Instructions, TAKE 1 TABLET BY MOUTH EVERY DAY AT BEDTIME, # 90 tablet, 3 Refills, Maintenance,05/21/25 9:07:00 AM EDT, [facility] #[id number], 147, cm, 05/21/25 8:19:00 EDT, Height, 45, kg,09/08/24 13:16:00 EDT, Dry Weight Start Date: 05/21/25 Status: Ordered Medication Dispense Status: Completed Quantity: 90.0 Unit: tablet Total Allowed Fills: 4 Fills Dispensed: 0 famotidine 40 mg oral tablet See Instructions, TAKE 1 TABLET BY MOUTH EVERY DAY AT BEDTIME, # 90 tablet, 3 Refills, Maintenance,04/30/25 4:14:00 PM EDT, [facility] #[id number], 147, cm, 04/23/25 15:36:00 EDT, Height, 45, kg, 09/08/24 13:16:00 EDT, Dry Weight Start Date: 04/30/25 Status: Ordered Medication Dispense Status: Completed Quantity: 90.0 Unit: tablet Total Allowed Fills: 4 Fills Dispensed: 0 fluticasone 50 mcg/inh nasal spray 1 sprays = 50 mcg, Nares, Both, 2 times a day, # 16 Gm, 5 Refills, Maintenance, 04/26/25 8:12:00 AM EDT, Nasal [place], [facility] #[id number], Partial fill upon patient request if the [...] 5 Refills, Maintenance, 09/16/25 10:10:00 AM EST, [facility] #[id number], 30, USE 2 SPRAYS IN EACH NOSTRIL [...] 5 Refills, Maintenance, 07/09/25 2:18:00 PM EDT, [facility] #[id number], 147, cm, 07/03/25 14:51:00 EDT, Height, 50.1, [...] 8:40:00 AM EDT, 05/21/25 8:40:00 AM EDT, [facility] #[id number], Partial fill upon patient request if the [...] 0 Refills, Maintenance, 09/09/25 8:49:00 PM EST, [facility] #[id number], 147, cm, 08/27/25 9:31:00 EDT, Height,50.1, kg, [...] PM EST, 09/09/25 8:49:00 PM EST, Tablet, [facility] #[id number], Partial fill upon patient request if the [...] 5 Refills, Maintenance, 03/04/25 5:46:00 AM EDT, [facility] #[id number], 147, cm, 12/31/24 7:48:00 EST, Height, 45, kg, 09/08/24 13:16:00 EDT, Dry Weight Start Date: 03/04/25 Status: Ordered Medication Dispense Status: Completed Quantity: 8.0 Unit: tablet Total Allowed Fills: 1 Fills Dispensed: 0 oxybutynin 15 mg/24 hr oral tablet, extended release 1 tablet, By Mouth, Daily, # 30 tablet, 5 Refills, Maintenance, 07/03/25 11:38:00 AM EDT, [facility] #[id number], 147, cm, 06/26/25 11:48:00 EDT, Height, 45, [...] 11 Refills, Maintenance, 05/01/25 9:40:00 AM EDT, Powder, [facility] #[id number], Partial fill upon patient request if the [...] Refills, Maintenance, 06/27/25 11:35:00 AM EDT, Powder, [facility] #[id number], Partial fill upon patient request if the [...] 11 Refills, Maintenance, 03/10/25 7:29:00 PM EDT, [facility] #[id number], 30, INHALE 1 PUFF BY MOUTH EVERY [...] 3 Refills, Maintenance, 05/21/25 8:40:00 AM EDT, [facility] #[id number], Partial fill upon patient request if the [...] Refills, Maintenance, 01/01/25 10:20:00 PM EST, Tablet, [facility] #[id number], Partial fill upon patient request if the [...] PM EDT, 09/02/25 8:50:00 PM EDT, Tablet, [facility] #[id number], Partial fill upon patient request if the [...] 9:28:00 PM EDT, Route to Pharmacy Electronically, [facility] #[id number], Partial fill upon patient request if the [...] Team Personnel Name: Kendall Ireland MD Position: [facility] Physician - Primary Care Member Role: PCP Address: [address] [place] [phone]- Telecom: Name: Juan F Villareal DO Position: [facility] BALING PRESS OPERATOR MD Member Role: [employer]etime BALING PRESS OPERATOR Physician Address: [address] [place] [phone] Telecom: Name: Divina Givens RN Position: [facility] RN Member Role: Primary Care Nurse Care Team Related Persons Name: MARCELINO TUCKER Name: GRETA COLLINS Name: KOFI WILLS Name: DAWOOD SUTTON Insurance Providers Guarantor name: OVI WILLS Health Plan Information #: 1 Payer: MEDICARE B Payer Identifier: NA Member Number: [id number] Group Number: [id number] Subscriber Identifier: RACHEL Relationship to Subscriber: self Coverage Type: NA Coverage Verification Date: NA Telecom: NA Address: Health Plan Information #: 2 [facility] Payer Identifier: NA Member Number: [id number] Group Number: [id number] Subscriber Identifier: NA Relationship to Subscriber: self Coverage Type: Commercial Indemnity Coverage Verification Date: NA Telecom: NA Address: NA
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
--- OUTSIDE RECORDS SUMMARY | 2025-09-27 08:07 | XMS_ITS | Clinical Summary ---
Author Organization [facility] Address [address] [place] [address] Care Team Providers Care Embedded Software Engineer Name Role Phone Dory Aldana Primary Care Provider [phone] Allergies No known active allergies Active Problems [...] [employer] [place] ual Screening 11/07/2024 Influenza Vaccine (#1) 2025 COVID-19 Vaccine (1 - 2024-2 6 season) 2025 RSV Vaccine (60+ years old a nd patients) (1 - 1-dose 75+ series) 2038 Hepatitis B Vaccines Aged Out No long er eligible based on patient's age to complete this topic Insurance Care Teams Embedded Software Engineer Relationship Specialty Start Date End Date Dory Aldana [address] [place] [phone] PCP - General 05/26/17
[2025-09-27 09:13] LABS: Leukocytes Stool Qualitative NEGATIVE (NEGATIVE)
[2025-09-27 12:07] LABS: E. coli EAEC Not Detected (Not Detect.); E. coli EPEC Not Detected (Not Detect.); E. coli ETEC Not Detected (Not Detect.); E. coli STEC Not Detected (Not Detect.); Shigella sp./EIEC Not Detected (Not Detect.)
[2025-10-05 18:17] LABS: Calprotectin, Fecal 54 mcg/g
== END 2025-09-26 08:06 | disposition home or self-care (01) ==
LOC: HO.LNP 08:05
PROVIDERS: Visit Provider Internal Medicine Gastroenterology
DX: R19.7 Diarrhea, unspecified (principal)
CPT/HCPCS: 83993; 87177; 87209; 87507; 89055

== ENCOUNTER 2025-10-11 12:06 | Outpatient (REF) | payer OTHER, MEDICARE, SELFPAY ==
[2025-10-11 13:31] LABS: CDiff Gene PCR NEGATIVE (Negative)
== END 2025-10-11 12:07 | disposition home or self-care (01) ==
LOC: HO.LNP 12:06
PROVIDERS: Visit Provider Internal Medicine Gastroenterology
DX: R19.7 Diarrhea, unspecified (principal)
CPT/HCPCS: 82656; 82705; 87493